=== PATIENT | female | born 1955 | race Hispanic/Latino ===

== ENCOUNTER 2020-11-09 18:01 | Emergency (ER) | payer BC ==
[~2020-11-09] VITALS: Ht 157.5 cm; Wt 98.4 kg
[2020-11-09] MEDS ORDERED: MECLIZINE HCL 12.5 MG TAB PO STA (18:16)
[2020-11-09] MEDS ORDERED: METOCLOPRAMIDE HCL 10 MG TAB PO ONE (18:30)
[2020-11-09] MEDS ORDERED: DIAZEPAM 5 MG TAB PO SCH (18:30)
[2020-11-09] MEDS ORDERED: ONDANSETRON ODT4 MG PO (22:09)
[2020-11-09] MEDS ORDERED: MECLIZINE HCL12.5 MG PO (22:09)
[2020-11-09 22:28] VITALS: BP 128/68
== END 2020-11-09 22:20 | disposition home or self-care (01) ==
LOC: ER 18:16
DX: R42 Dizziness and giddiness (principal); M79.89 Other specified soft tissue disorders
CPT/HCPCS: 73590; 93971; 99283; J8597 ×2